=== PATIENT | female | born 1955 | race Caucasian/White ===

== ENCOUNTER 2022-07-18 11:03 | Observation (INO) | payer MEDICARE ==
[2022-07-18 11:50] LABS: Glucose,Whole Blood 95 mg/dL (70-110)
[2022-07-18 12:11] LABS: Basophils % (A) 1 %; Eosinophils # (A) 0.1 k/uL (0-0.7); Eosinophils % (A) 2 %; HCT 47.4 % (34.0-46.0); HGB 15.4 gm/dL (11.4-16.0); Lymphocytes # (A) 1.4 k/uL (1.0-4.8); Lymphocytes % (A) 27 %; MCH 31.3 pg (25.0-35.0); MCHC 32.4 g/dL (31.0-37.0); MCV 96.6 fL (80.0-100.0); Mean Platelet Volume 8.5; Monocytes # (A) 0.4 k/uL (0-1.0); Monocytes % (A) 8 %; Neutrophils # (A) 3.2 k/uL (1.3-7.7); Neutrophils % (A) 61 %; Platelet Count 243 k/uL (150-450); RBC 4.91 m/uL (3.80-5.40); WBC 5.2 k/uL (3.8-10.6)
--- NOTE | 2022-07-18 12:12 | XR ---
EXAMINATION TYPE: XR chest 2V DATE OF EXAM: 07/18/2022 COMPARISON: NONE TECHNIQUE: PA and lateral views submitted. HISTORY: TIA symptoms FINDINGS: The lungs are clear and there is no pneumothorax, pleural effusion, or focal pneumonia. Heart size normal and no overt failure. Osseous structures demonstrate hypertrophic and degenerative changes of the spine. Hyperinflation suggests COPD. IMPRESSION: 1. No acute process.
--- NOTE | 2022-07-18 12:23 | CT ---
EXAMINATION TYPE: CT brain wo con DATE OF EXAM: 07/18/2022 COMPARISON: None HISTORY: Neuro deficit, acute, stroke, suspected CT DLP: 1096.7 mGycm Automated exposure control for dose reduction was used. FINDINGS: Mild to moderate generalized degenerative change of low attenuation in the white matter. No mass effe ct or midline shift. On axial image 7 there is an area of hyperdensity near the foramen of magnum whi ch is felt to be most likely artifactual but should be reevaluated at time of CTA. There does appear to be evidence of a Chiari malformation with cerebellar tonsillar ectopia and there also is a evidenc e of a partially empty sella which can be an indirect indicator of increased intracranial pressure. O rbits are symmetric. Graft orbits are symmetric. There are changes of chronic sinusitis. IMPRESSION: 1. Degenerative and nonspecific white matter changes most typical of remote ischemia. There is eviden ce of tonsillar ectopia and Chiari malformation. 2. No definite acute hemorrhage. Area of hyperdensity seen surrounding the cervical medullary junctio n axial image 7 is felt to be most likely artifactual but should be reevaluated at the time of the CT A. 3. There is a 8 mm nodule posterior lateral to the left of the spinal cord on axial image 4. This nadia uld also be evaluated at the time of CTA (which has already been ordered) to determine if this is a b lood vessel or intradural spinal canal lesion.
[2022-07-18 12:25] LABS: ALT 29 U/L (4-34); AST 33 U/L (14-36); African American GFR (CKD) >90 (>60 ml/min/1.73 sqM); Albumin 4.7 g/dL (3.5-5.0); Alkaline Phosphatase 78 U/L (38-126); Anion Gap 9 mmol/L; Blood Urea Nitrogen 12 mg/dL (7-17); Calcium 9.5 mg/dL (8.4-10.2); Carbon Dioxide 30 mmol/L (22-30); Chloride 103 mmol/L (98-107); Glucose 104 mg/dL (74-99); Non-African American GFR(CKD) >90 (>60 ml/min/1.73 sqM); Potassium 4.1 mmol/L (3.5-5.1); Sodium 142 mmol/L (137-145)
[2022-07-18 12:26] LABS: INR 0.9 (<1.2); Partial Thromboplastin Time 25.5 sec (22.0-30.0); Prothrombin Time 9.9 sec (9.0-12.0)
--- NOTE | 2022-07-18 12:51 | CT ---
EXAMINATION TYPE: CT angio head neck DATE OF EXAM: 07/18/2022 COMPARISON: Noncontrast CT head same day HISTORY: 66-year-old female Neuro deficit, acute, stroke suspected TECHNIQUE: Contiguous axial scanning of the head and neck performed with IV Contrast, patient injecte d with 65 ml mL of Isovue 370. Coronal/sagittal reconstructions performed. 3-D reconstructions genera justen on a dedicated independent workstation. CT DLP: 511.8 mGycm Automated exposure control for dose reduction was used. FINDINGS: Neck: Mildly ectatic upper descending thoracic aorta at 3.2 cm. Conventional branching anatomy. Dominant left vertebral artery with possible moderate narrowing at its origin. Otherwise, both verteb ral arteries are patent throughout their course. Retropharyngeal course right common carotid artery. Both right common and internal carotid arteries are widely patent. NASCET criteria was utilized. Left common carotid artery is patent. Retropharyngeal course proximal and mid left internal carotid artery. Internal carotid artery widely patent. Head: Slightly more dominant left vertebral artery. The V4 segment right vertebral artery after the PICA ta keoff becomes even more hypoplastic. We note some dorsal soft tissue at the lower craniocervical junc tion which appears to displace opacified vessels anteriorly. Extra medullary intradural mass is possi ble. Significant cerebellar tonsillar ectopia is favored. Diffusely small caliber to the basilar artery which is otherwise patent. Hypoplastic bilateral P1 seg ments posterior cerebral arteries with large bilateral posterior communicating arteries compatible wi th persistent origins. Otherwise, posterior circulation is patent. Both internal carotid arteries as well as the remainder of the anterior circulation is patent. No aneurysmal change is seen. Dural venous sinuses are patent. IMPRESSION: NECK: 1. DOMINANT LEFT VERTEBRAL ARTERY. THERE MAY BE A MODERATE STENOSIS AT ITS ORIGIN. OTHERWISE, BOTH VE RTEBRAL ARTERIES OPACIFY THROUGHOUT THEIR COURSE. 2. WIDELY PATENT COMMON AND INTERNAL CAROTID ARTERIES OF THE NECK. HEAD: 3. EXTRAMEDULLARY, INTRADURAL SOFT TISSUE ALONG THE DORSAL ASPECT OF THE LOWER CRANIOCERVICAL JUNCTIO N. RECOMMEND MRI TO EXCLUDE A MASS WITHIN THE SPINAL CANAL HERE. WE FAVOR AN UNDERLYING CHIARI I MALF ORMATION. CORRELATE FOR ANY CHRONIC SYMPTOMS. 4. UNIFORMLY SMALL CALIBER TO THE VERTEBROBASILAR SYSTEM. CORRELATE FOR ANY CHRONIC VERTEBROBASILAR I NSUFFICIENCY SYMPTOMS. 5. PERSISTENT ORIGIN BILATERAL POSTERIOR CEREBRAL ARTERIES. 6. NO LARGE VESSEL INTRACRANIAL ARTERIAL OCCLUSION, SIGNIFICANT STENOSIS, OR ANEURYSMAL CHANGE IS SEE N.
[2022-07-18] MEDS ORDERED: hydrALAZINE HCL 20 MG/ML 1 ML VIAL IVP STA (13:43)
--- NOTE | 2022-07-18 14:01 | ED ---
General Adult HPI - General Chief complaint: Weakness Stated complaint: poss TIA Time Seen by Provider: 07/18/22 11:10 Source: patient, EMS, RN notes reviewed, old records reviewed Mode of arrival: EMS Limitations: no limitations - History of Present Illness Initial comments: This is a 66-year-old female presents emergency department stating that she was experiencing some numbness to the right side of her face and right arm and then it went to her right leg. Patient states then she went to stand up and she felt like she might start to fall over. Patient states the symptoms lasted pretty significantly for about 15 minutes and currently they are completely gone. Patient states any prior history of similar symptoms. Patient denies any recent fever chills per patient denies any headache patient denies any chest pain palpitations or difficulty breathing. Patient denies any abdominal pain. Patient states currently she feels back to her baseline. - Related Data Home Medications Medication Instructions Recorded Confirmed No Known Home Medications 07/18/22 07/18/22 Allergies Allergy/AdvReac Type Severity Reaction Status Date / Time No Known Allergies Allergy Verified 07/18/22 12:51 Review of Systems ROS Statement: Those systems with pertinent positive or pertinent negative responses have been documented in the HPI. ROS Other: All systems not noted in ROS Statement are negative. Past Medical History Past Medical History: Hypertension History of Any Multi-Drug Resistant Organisms: None Reported Past Surgical History: No Surgical Hx Reported Smoking Status: Never smoker Past Alcohol Use History: None Reported Past Drug Use History: None Reported General Exam - General Exam Comments Initial Comments: GENERAL: Patient is well-developed and well-nourished. Patient is nontoxic and well- hydrated and is in acute distress. ENT: Neck is soft and supple. No significant lymphadenopathy is noted. Oropharynx is clear. Moist mucous membranes. Neck has full range of motion without eliciting any pain. EYES: The sclera were anicteric and conjunctiva were pink and moist. Extraocular movements were intact and pupils were equal round and reactive to light. Eyelids were unremarkable. PULMONARY: Unlabored respirations. Good breath sounds bilaterally. No audible rales rhonchi or wheezing was noted. CARDIOVASCULAR: There is a regular rate and rhythm without any murmurs gallops or rubs. ABDOMEN: Soft and nontender with normal bowel sounds. SKIN: Skin is clear with no lesions or rashes and otherwise unremarkable. NEUROLOGIC: Patient is alert and oriented x3. Cranial nerves II through XII are grossly intact. Motor and sensory are also intact. Normal speech, volume and content. Symmetrical smile. Cerebellar testing finger to nose was normal bilaterally MUSCULOSKELETAL: Normal extremities with adequate strength and full range of motion. LYMPHATICS: No significant lymphadenopathy is noted PSYCHIATRIC: Normal psychiatric evaluation. Limitations: no limitations Course Vital Signs 07/18/22 07/18/22 11:05 12:23 Temperature 97.8 F Pulse Rate 68 60 Respiratory 20 18 Rate Blood Pressure 225/109 196/101 O2 Sat by Pulse 97 96 Oximetry Medical Decision Making - Medical Decision Making EKG was interpreted by myself shows a sinus rhythm at 66 bpm AK interval 172 QRS is 104 QT interval is 419 QTC is 432. Patient's EKG shows no ST segment elevation Was pt. sent in by a medical professional or institution (, PA, STATION CHIEF, urgent care, hospital, or alf...) When possible be specific @ -No Did you speak to anyone other than the patient for history (EMS, parent, family, police, friend...)? What history was obtained from this source @ -No Did you review nursing and triage notes (agree or disagree)? Why? @ -I reviewed and agree with nursing and triage notes Were old charts reviewed (outside hosp., previous admission, EMS record, old EKG, old radiological studies, urgent care reports/EKG's, alf records)? Report findings @ -No old charts were reviewed Differential Diagnosis (chest pain, altered mental status, abdominal pain women, abdominal pain men, vaginal bleeding, weakness, fever, dyspnea, syncope, headache, dizziness, GI bleed, back pain, seizure, CVA, palpatations, mental health, musculoskeletal)? @ -Differential CVA Ischemic stroke, hemorrhagic stroke, brain tumor, atypical migraine, Wernicke's encephalopathy, seizure, multiple sclerosis, meningitis, encephalitis, hypoglycemia, Guillain-Mayes, electrolytes disturbance, myasthenia gravis.... This is not meant to be an all-inclusive list EKG interpreted by me (3pts min.). @ -As above X-rays interpreted by me (1pt min.). @ -Chest x-ray was interpreted by myself shows no acute abnormality. CT interpreted by me (1pt min.). @ -CT of the brain was interpreted by myself shows no acute abnormality. CT of the head and neck shows a possible Chiari malformation U/S interpreted by me (1pt. min.). @ -None done What testing was considered but not performed or refused? (CT, X-rays, U/S, labs)? Why? @ -None What meds were considered but not given or refused? Why? @ -None Did you discuss the management of the patient with other professionals (pro fessionals i.e. , PA, STATION CHIEF, lab, RT, psych nurse, high school social science teacher, revenue analyst, teacher, escrow officer, pillowcase sewer)? Give summary @ -[facility] the patient Was smoking cessation discussed for >3mins.? @ -No Was critical care preformed (if so, how long)? @ -No Were there social determinants of health that impacted care today? How? (Homelessness, low income, unemployed, alcoholism, drug addiction, transportati on, low edu. Level, literacy, decrease access to med. care, penitentiary, rehab)? @ -No Was there de-escalation of care discussed even if they declined (Discuss DNR or withdrawal of care, Hospice)? DNR status @ -No What co-morbidities impacted this encounter? (DM, HTN, Smoking, COPD, CAD, Cancer, CVA, ARF, Chemo, Hep., AIDS, mental health diagnosis, sleep apnea, morbid obesity)? @ -None Was patient admitted / discharged? Hospital course, mention meds given and route, prescriptions, significant lab abnormalities, going to OR and other pertinent info. @ -Patient had symptoms consistent with a TIA. I spoke with the hospice agreed to admit the patient and consult neurology. Patient's computed tomography scan also showed possible Chiari malformations the patient will need an MRI to follow up on whether or not she has a malformation Undiagnosed new problem with uncertain prognosis? @ -No Drug Therapy requiring intensive monitoring for toxicity (Heparin, Nitro, Insulin, Cardizem)? @ -No Were any procedures done? @ -No Diagnosis/symptom? @ -TIA Acute, or Chronic, or Acute on Chronic? @ -Acute Uncomplicated (without systemic symptoms) or Complicated (systemic symptoms)? @ -Complicated Side effects of treatment? @ -No Exacerbation, Progression, or Severe Exacerbation? @ -No Poses a threat to life or bodily function? How? (Chest pain, [place], [place], pneumonia, PE, COPD, DKA, ARF, appy, cholecystitis, CVA, Diverticulitis, Homicidal, Suicidal, threat to staff... and all critical care pts) @ -Yes could lead to progression of the stroke to serious deficit - Lab Data Result diagrams: 07/18/22 11:50 07/18/22 11:50 Lab Results 07/18/22 07/18/22 07/18/22 Range/Units 11:49 11:50 11:50 WBC 5.2 (3.8-10.6) k/uL RBC 4.91 (3.80-5.40) m/uL Hgb 15.4 (11.4-16.0) gm/dL Hct 47.4 H (34.0-46.0) % MCV 96.6 (80.0-100.0) fL MCH 31.3 (25.0-35.0) pg MCHC 32.4 (31.0-37.0) g/dL RDW 13.0 (11.5-15.5) % Plt Count 243 (150-450) k/uL MPV 8.5 Neutrophils % 61 % Lymphocytes % 27 % Monocytes % 8 % Eosinophils % 2 % Basophils % 1 % Neutrophils # 3.2 (1.3-7.7) k/uL Lymphocytes # 1.4 (1.0-4.8) k/uL Monocytes # 0.4 (0-1.0) k/uL Eosinophils # 0.1 (0-0.7) k/uL Basophils # 0.0 (0-0.2) k/uL PT 9.9 (9.0-12.0) sec INR 0.9 (<1.2) APTT 25.5 (22.0-30.0) sec Sodium (137-145) mmol/L Potassium (3.5-5.1) mmol/L Chloride (98-107) mmol/L Carbon Dioxide (22-30) mmol/L Anion Gap mmol/L BUN (7-17) mg/dL Creatinine (0.52-1.04) mg/dL Est GFR (CKD-EPI)AfAm (>60 ml/min/1.73 sqM) Est GFR (CKD-EPI)NonAf (>60 ml/min/1.73 sqM) Glucose (74-99) mg/dL POC Glucose (mg/dL) 95 (70-110) mg/dL POC Glu Rn [place] Calcium (8.4-10.2) mg/dL Total Bilirubin (0.2-1.3) mg/dL AST (14-36) U/L ALT (4-34) U/L Alkaline Phosphatase (38-126) U/L Troponin I (0.000-0.034) ng/mL Total Protein (6.3-8.2) g/dL Albumin (3.5-5.0) g/dL 07/18/22 07/18/22 Range/Units 11:50 11:50 WBC (3.8-10.6) k/uL RBC (3.80-5.40) m/uL Hgb (11.4-16.0) gm/dL Hct (34.0-46.0) % MCV (80.0-100.0) fL MCH (25.0-35.0) pg MCHC (31.0-37.0) g/dL RDW (11.5-15.5) % Plt Count (150-450) k/uL MPV Neutrophils % % Lymphocytes % % Monocytes % % Eosinophils % % Basophils % % Neutrophils # (1.3-7.7) k/uL Lymphocytes # (1.0-4.8) k/uL Monocytes # (0-1.0) k/uL Eosinophils # (0-0.7) k/uL Basophils # (0-0.2) k/uL PT (9.0-12.0) sec INR (<1.2) APTT (22.0-30.0) sec Sodium 142 (137-145) mmol/L Potassium 4.1 (3.5-5.1) mmol/L Chloride 103 (98-107) mmol/L Carbon Dioxide 30 (22-30) mmol/L Anion Gap 9 mmol/L BUN 12 (7-17) mg/dL Creatinine 0.58 (0.52-1.04) mg/dL Est GFR (CKD-EPI)AfAm >90 (>60 ml/min/1.73 sqM) Est GFR (CKD-EPI)NonAf >90 (>60 ml/min/1.73 sqM) Glucose 104 H (74-99) mg/dL POC Glucose (mg/dL) (70-110) mg/dL POC Glu Rn [place] Calcium 9.5 (8.4-10.2) mg/dL Total Bilirubin 1.0 (0.2-1.3) mg/dL AST 33 (14-36) U/L ALT 29 (4-34) U/L Alkaline Phosphatase 78 (38-126) U/L Troponin I <0.012 (0.000-0.034) ng/mL Total Protein 8.0 (6.3-8.2) g/dL Albumin 4.7 (3.5-5.0) g/dL Disposition Clinical Impression: TIA (transient ischemic attack), Chiari malformation Disposition: ADMITTED IP TO THIS HOSP Referrals: Nonstaff,Physician [Primary Care Provider] - 1-2 days Time of Disposition: 14:01
[2022-07-18] MEDS ORDERED: ASPIRIN 325 MG TAB PO STA (14:02)
--- NOTE | 2022-07-18 16:28 | P.CNNES ---
History of Present Illness Consult date: 07/18/22 Requesting physician: Kamlesh Umana Reason for Consult: TIA History of Present Illness: This is a 66-year-old woman with chronic history of hypertension and patient is on any medication who presented emergency department because of numbness over the right side of the face as well as the upper and lower extremity. Her children are at bedside who help with some of the history. It seems that the patient's symptoms started around 9:49 AM today with numbness around the right side of the face then eventually went to the right arm and right leg. Patient had questionable right lower facial droop. It seems the patient went to stand up and sensational fall. Her episode ended around 10:07 AM today. Patient denies history of stroke or TIA in the past. Patient denies being on antiplatelet or anticoagulation. She states that she's not any medication. She states that she has chronic history of hypertension and her systolic blood pressure runs between 140s to 150s. She has tried taking medication in April 2022 but could not tolerate the medication was stopped. She denies any history of diabetes or any other medical issues. Some other workup during this hospital visits consisted of: Initial blood pressure is 225/110 9 repeated is 196/101. Chemistry panel is unremarkable. CT of the head is reported as degenerative and nonspecific white matter changes most typical of remote ischemia. 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 No definite acute hemorrhage. Area of hyperdensity seen surrounding the cervical medullary junction axillary image 7 is felt to be most likely artifactual but should be reevaluated at the time of the CTA. There is 8 mm nodule posture lateral to the left or spinal cord on axial image 4. Should be evaluated at the time of CTA which already abdomen order to determine if this is a blood vessel or intradural spinal canal lesion. I personally reviewed the CT of the head and there is no acute or subacute ischemia there is no bleed. I feel patient does not have a mass seen on the cervical medullary junction but MRI is more specific to rule out. CT angiography of the neck is reported as dominant left vertebral artery. There may be a moderate stenosis at the origin. Otherwise both vertebral artery opacity through their course. Widely patent common internal carotid artery of the neck. CT angiography of the head is reported as extramedullary, intramedullary soft tissue along the dorsal aspect of the lower cranial cervical junction area and recommended to exclude a mass within the spinal canal here. We favor an underlying chiari malformation. Correlate for any chronic symptoms. Uniformly small caliber to the vertebrobasilar system. Correlate for any chronic vertebrobasilar insufficiency symptoms. Persistent origin bilateral posterior cerebral arteries. No large vessel intracranial arterial occlusion, significant stenosis or aneurysm changes seen. Patient's symptoms has resolved on presentation. No IV TPA since symptoms has resolved and the risk of use of a TPA outweigh the benefit Review of Systems Review of system: The 12 point system was reviewed and apparent positive and negative per HPI. Past Medical History Past Medical History: Hypertension History of Any Multi-Drug Resistant Organisms: None Reported Past Surgical History: No Surgical Hx Reported Smoking Status: Never smoker Past Alcohol Use History: None Reported Past Drug Use History: None Reported Medications and Allergies Home Medications Medication Instructions Recorded Confirmed Type No Known Home Medications 07/18/22 07/18/22 History Allergies Allergy/AdvReac Type Severity Reaction Status Date / Time No Known Allergies Allergy Verified 07/18/22 12:51 Physical Examination - Vital Signs Vital Signs: Vital Signs Temp Pulse Resp BP Pulse Ox 07/18/22 15:00 73 13 164/94 98 07/18/22 14:00 78 9 L 181/96 96 07/18/22 13:00 69 11 L 190/100 96 07/18/22 12:23 60 18 196/101 96 07/18/22 11:05 97.8 F 68 20 225/109 97 Intake and Output 07/18/22 07/18/22 07/18/22 06:59 14:59 22:59 Other: Weight 81.647 kg GENERAL: The patient is lying in bed and is not in acute distress. CHEST: The heart rate is regular rate rhythm. No murmurs to auscultation. LUNG: Clear to auscultation bilaterally no wheezing noted throughout. Not labored breathing. ABDOMEN/GI: Bowel sounds present in all 4 quadrants. No tenderness to palpation throughout. NEUROLOGICAL: Higher mental function: The patient is awake, alert, oriented to self, place and time. Patient is following commands. No aphasia and no neglect. Cranial nerves: The pupils are round, equal and reactive to light and a ccommodation. Visual hendrix are full to confrontation throughout. Extraocular movement is intact no nystagmus is noted. Facial sensation is normal to touch throughout. The facial strength is normal throughout. Hearing is normal bilaterally to hand rub. Tongue is midline and moved [id number] without any difficulty. No dysarthria is noted. Shoulder shrug is normal bilaterally. Motor: The strength is 5 over 5 throughout. Normal tone and bulk. Cerebellum: Normal finger to nose heel to morrow bilaterally. Sensation: Sensation is normal to touch throughout. Reflexes (right/left): 2+ throughout. Plantars are downgoing bilaterally. Results - Laboratory Findings CBC and BMP: 07/18/22 11:50 07/18/22 11:50 Abnormal Lab Findings: Abnormal Labs 07/18/22 07/18/22 11:50 11:50 Hct 47.4 H Glucose 104 H Assessment and Plan Assessment: * Transient ischemic attack (presented with numbness of the right face then involved right upper and lower and sensation to fall with ?right facial). Likely due chronic hypertension and patient is not on medicaiton. * Hypertensive emergency (presented with blood pressure of 225/109) * Extramedullary, intramedullary soft tissue along the dorsal aspect of the lower cranial cervical junction seen on CT/CTA: Rule out mass vs underlying chiari malformation. * Ongoing chronic hypertension and not on mediation. * Family history of TIA Plan: * Extramedullary, intramedullary soft tissue along the dorsal aspect of the lower cranial cervical junction seen on CT/CTA: Rule out mass vs underlying chiari malformation.: Therefore, ordered MRI Brain/C-spine w/ and w/o. * Patient was started on aspirin 325mg daily in the ED (was not on any antiplatelets at home). I will hold the use of stool antiplatelets until we get the MRI to rule out any mass to avoid any increased risk of a bleeding. I started the patient on low dose Lipitor 10 mg daily at bedtime for secondary stroke prophylaxis. I startedher on low dose statin since the patient was hesitant on starting because her had side effects to Lipitor. * I ordered 2-D echo and lipid panel is ordered. * Every 4 neuro checks * Placed on cardiac monitoring * PT OT and [employer] are consulted * We'll defer the rest of the medical management to primary team * For DVT prophylaxis start the patient on subcu heparin 5000 units every 8 hours. The plan was discussed with the patient and her children who are bedside. Thank you for the consultation Time with Patient: Greater than 30
[2022-07-18] MEDS ORDERED: ATORVASTATIN 10 MG TAB PO SCH (21:00)
[2022-07-18] MEDS: HEPARIN SODIUM,PORCINE/PF 5,000 UNIT/0.5 ML SYRINGE SQ SCH (21:04)
--- NOTE | 2022-07-19 01:42 | P.HPIM ---
History of Present Illness H&P Date: 07/18/22 Chief Complaint: Right-sided numbness Patient is a 66-year-old female known history of hypertension currently not on any medications presents to ER with complaints of numbness of the right upper and lower extremity and right side of the face. Denies any slurred speech or vi sual disturbance. No headache or dizziness. Symptoms lasted about 10 minutes and resolved by the time EMS arrived. Otherwise patient denied any recent illnesses. No prior history of stroke or TIA. On admission blood pressure is elevated with SBP in 200s. Blood pressure 225 or 109 and pulse 68 respiration 20 and pulse ox 97% on room air. Patient is somewhat poor historian and most of the history was taken from medical records and her family at bedside. Chest x-ray showed no acute process. CT head showed degenerative and nonspecific white matter changes most typical of remote ischemia. 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 No definite acute hemorrhage. Area of hypodensity seen surrounding the cervical medullary junction is felt to be most likely artifactual but should be reevaluated at the time of CTA. There is 8 mm nodule posterior lateral to the left of the spinal cord there is also evaluated at the time of CTA. CT angiogram showed dominant left vertebral artery. There may be a moderate stenosis at its origin. Otherwise both vertebral arteries opacified throughout the course. Widely patent common and blinker of the arteries of the neck. CTA head showed extramedullary intradural soft tissue along the dorsal aspect of the lower craniocervical junction. Recommend MRI to exclude a mass within the spinal canal here. Possible underlying Chiari malformation. Persistent origin bilateral posterior cerebral arteries. No large vessel intracranial arterial occlusion., Significant stenosis, or aneurysmal change is seen. Laboratory data showed WBC 5.2 hemoglobin 15.4 and platelets 243 sodium 142 potassium 4.1 chloride 103 bicarb is 30 BUN 12 and creatinine 0.58 and liver enzymes are not elevated troponin x3 negative CPK 130. Review of Systems Constitutional: Patient denies any fever or chills . no Generalized weakness. Abdomen: Patient denied any nausea or vomiting or abd. pain Cardiovascular: Patient denies any chest pain or short of breath no palpitations. Respiratory: patient denied any cough . no sputum production. No shortness of breath Neurologic: Patient denied any numbness or tingling headache. Right-sided numbness. Denies any focal weakness. Musculoskeletal: Patient denies any complaints of joint swelling or deformity. Skin: Negative Psychiatric: Negative Endocrine: No heat or cold intolerance. No recent weight gain. Genitourinary: No dysuria or hematuria. All other 14 point ROS negative except the above Past Medical History Past Medical History: Hypertension History of Any Multi-Drug Resistant Organisms: None Reported Past Surgical History: No Surgical Hx Reported Smoking Status: Never smoker Past Alcohol Use History: None Reported Past Drug Use History: None Reported Medications and Allergies Home Medications Medication Instructions Recorded Confirmed Type No Known Home Medications 07/18/22 07/18/22 History Allergies Allergy/AdvReac Type Severity Reaction Status Date / Time No Known Allergies Allergy Verified 07/18/22 12:51 Physical Exam Vitals: Vital Signs Temp Pulse Resp BP Pulse Ox 07/18/22 15:00 73 13 164/94 98 07/18/22 14:00 78 9 L 181/96 96 07/18/22 13:00 69 11 L 190/100 96 07/18/22 12:23 60 18 196/101 96 07/18/22 11:05 97.8 F 68 20 225/109 97 Intake and Output 07/18/22 07/18/22 07/18/22 06:59 14:59 22:59 Other: Weight 81.647 kg PHYSICAL EXAMINATION: Patient is lying in the bed comfortably, no acute distress, awake alert and oriented.. HEENT: Normocephalic. Neck is supple. Pupils reactive. Nostrils clear. Oral cavity is moist. Neck reveals no JVD, carotid bruits, or thyromegaly. CHEST EXAMINATION: Trachea is central. Symmetrical expansion. Lung hendrix clear to auscultation and percussion. CARDIAC: Normal S1, S2 with no gallops. No murmurs ABDOMEN: Soft. Bowel sounds present. Nontender. No organomegaly. No abdominal bruits. Extremities: reveal no edema. No clubbing or cyanosis Neurologically awake, alert, oriented x2-3 with well-coordinated movements. No focal deficits noted Skin: No rash or skin lesions. Psychiatric: Coperative. Nonsuicidal, Musculoskeletal: No joint swelling or deformity. Normal range of motion. Results CBC & Chem 7: 07/18/22 11:50 07/18/22 11:50 Labs: Abnormal Lab Results - Last 24 Hours (Table) 07/18/22 07/18/22 Range/Units 11:50 11:50 Hct 47.4 H (34.0-46.0) % Glucose 104 H (74-99) mg/dL Thrombosis Risk Factor Assmnt - DVT/VTE Prophylaxis DVT/VTE Prophylaxis: Pharmacologic Prophylaxis ordered Assessment and Plan Assessment: Right-sided upper and lower extremity and facial numbness. Likely due to TIA resolved now. Hypertensive emergency with SBP greater than 220 on admission History of hypertension currently not taking any medications. Possible Chiari malformation as per CTA and CT head. DVT prophylaxis with heparin subcu Plan: Patient will be continued on telemetry monitoring. Continue with neurochecks. Stroke work-up including CT head and CTA head and neck was done. MRI of the brain and C-spine was ordered for further evaluation of possible Chiari malformation. Patient was started on aspirin and statins. 2D echocardiogram was ordered. Follow-up TSH, B12 and folate levels. Continue to monitor blood pressure and will initiate Norvasc/lisinopril in the next 24 hours. Follow-up closely. Neurology is on board. Time with Patient: Greater than 30
[2022-07-19 08:15] VITALS: RESP 16
[2022-07-19] MEDS: HEPARIN SODIUM,PORCINE/PF 5,000 UNIT/0.5 ML SYRINGE SQ SCH ×2 (08:52→18:02)
[2022-07-19] MEDS ORDERED: ASPIRIN 325 MG TAB PO SCH (09:00)
[2022-07-19 10:01] LABS: African American GFR (CKD) 105.4 (60.0-200.0); BUN/Creat Ratio 17.29 Ratio (12.00-20.00); Blood Urea Nitrogen 12.1 mg/dL (9.0-27.0); Calcium 9.6 mg/dL (8.7-10.3); Carbon Dioxide 27.9 mmol/L (20.0-27.5); Chloride 104 mmol/L (96-109); Glucose 89 mg/dL (70-110); Non-African American GFR(CKD) 90.9 (60.0-200.0); Potassium 3.6 mmol/L (3.5-5.5); Sodium 141 mmol/L (135-145)
[2022-07-19 10:02] LABS: Chol/HDL Ratio 4.19 Ratio; LDL Cholesterol,Calculated 130.6 mg/dL (0.0-131.0)
--- NOTE | 2022-07-19 12:01 | P.PN ---
Subjective Progress Note Date: 07/19/22 Patient seen at bedside and that continues to feel as she is at baseline. Denies of any neurological issues. Denies of any headache. Objective - Vital Signs Vital signs: Vital Signs Temp 97.7 F 07/19/22 07:00 Pulse 76 07/19/22 07:00 Resp 16 07/19/22 07:00 BP 159/78 07/19/22 07:00 Pulse Ox 97 07/19/22 08:01 FiO2 21 07/19/22 08:01 Intake & Output 07/18/22 07/19/22 07/19/22 18:59 06:59 18:59 Weight 81.647 kg Other: # Voids 2 - Exam GENERAL: The patient is lying in bed and is not in acute distress. NEUROLOGICAL: Higher mental function: The patient is awake, alert, oriented to self, place and time. Patient is following commands. No aphasia and no neglect. Cranial nerves: The pupils are round, equal and reactive to light and a ccommodation. Visual hendrix are full to confrontation throughout. Extraocular movement is intact no nystagmus is noted. Facial sensation is normal to touch throughout. The facial strength is normal throughout. Hearing is normal bilaterally to hand rub. Tongue is midline and moved [id number] without any difficulty. No dysarthria is noted. Shoulder shrug is normal bilaterally. Motor: Gait is normal. The strength is 5 over 5 throughout. Normal tone and bulk. Cerebellum: Normal finger to nose heel to morrow bilaterally. Sensation: Sensation is normal to touch throughout. Reflexes (right/left): 2+ throughout. Plantars are downgoing bilaterally. Some other workup during this hospital visits consisted of: Lipid panel: Triglyceride of 101, cholesterol 190, LDLs 1:30, HDL is 47. Vitamin B12 is 345 TSH is 1.510 Chemistry panel is unremarkable. CT of the head is reported as degenerative and nonspecific white matter changes most typical of remote ischemia. 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 No definite acute hemorrhage. Area of hyperdensity seen surrounding the cervical medullary junction axillary image 7 is felt to be most likely artifactual but should be reevaluated at the time of the CTA. There is 8 mm nodule posture lateral to the left or spinal cord on axial image 4. Should be evaluated at the time of CTA which already abdomen order to determine if this is a blood vessel or intradural spinal canal lesion. I personally reviewed the CT of the head and there is no acute or subacute ischemia there is no bleed. I feel patient does not have a mass seen on the cervical medullary junction but MRI is more specific to rule out. CT angiography of the neck is reported as dominant left vertebral artery. There may be a moderate stenosis at the origin. Otherwise both vertebral artery opacity through their course. Widely patent common internal carotid artery of the neck. CT angiography of the head is reported as extramedullary, intramedullary soft tissue along the dorsal aspect of the lower cranial cervical junction area and recommended to exclude a mass within the spinal canal here. We favor an underlying chiari malformation. Correlate for any chronic symptoms. Uniformly small caliber to the vertebrobasilar system. Correlate for any chronic vertebrobasilar insufficiency symptoms. Persistent origin bilateral posterior cerebral arteries. No large vessel intracranial arterial occlusion, significant stenosis or aneurysm changes seen. - Labs CBC & Chem 7: 07/18/22 11:50 07/19/22 06:27 Labs: Abnormal Lab Results - Last 24 Hours (Table) 07/18/22 07/18/22 07/19/22 Range/Units 11:50 11:50 06:27 Hct 47.4 H (34.0-46.0) % Carbon Dioxide 27.9 H (20.0-27.5) mmol/L Anion Gap 9.10 L (10.00-18.00) mmol/L Glucose 104 H (74-99) mg/dL Assessment and Plan Assessment: * Transient ischemic attack (presented with numbness of the right face then involved right upper and lower and sensation to fall with ?right facial). Likely due chronic hypertension and patient is not on medication. * Hypertensive emergency (presented with blood pressure of 225/109) * Extramedullary, intramedullary soft tissue along the dorsal aspect of the lower cranial cervical junction seen on CT/CTA: Rule out mass vs underlying chiari malformation. * Ongoing chronic hypertension and not on mediation. * Family history of TIA Plan: * Extramedullary, intramedullary soft tissue along the dorsal aspect of the lower cranial cervical junction seen on CT/CTA: Rule out mass vs underlying chiari malformation.: Therefore, ordered MRI Brain/C-spine w/ and w/o. * Patient was started on aspirin 325mg daily in the ED (was not on any antiplatelets at home). I will hold the use of stool antiplatelets until we get the MRI to rule out any mass to avoid any increased risk of a bleeding. I started the patient on low dose Lipitor 10 mg daily at bedtime for secondary stroke prophylaxis. I started her on low dose statin since the patient was hesitant on starting. * Pending 2-D echo * Every 4 neuro checks * Placed on cardiac monitoring * PT OT and ASSISTANT CUSTOMER SERVICE MANAGER are consulted * We'll defer the rest of the medical management to primary team * For DVT prophylaxisOn subcu heparin 5000 units every 8 hours. * Upon discharge and recommend the patient follow up with a neurologist as an outpatient within 1-2 weeks. The plan was discussed with the patient and her nurse. Time with Patient: Less than 30
--- NOTE | 2022-07-19 15:45 | MR ---
EXAMINATION TYPE: MR brain/cspine wo/w DATE OF EXAM: 07/19/2022 COMPARISON: None HISTORY: Neuro deficit, abnormal brain CT CONTRAST: Standard multiplanar, multisequence MRI departmental protocol images were obtained without contrast a nd with 8.5 mL intravenous Gadavist gadolinium contrast. There is mild cerebral cortical atrophy. There is no mass effect or midline shift. No sign of intracr anial hemorrhage. Diffusion images show no evidence of an acute infarct. Brainstem is intact. There are on the T2 and FLAIR images multiple foci of increased signal at the gr ay-white matter junction both cerebral hemispheres. Total number is more than 20 and these measure up to 5 mm. Solid turcica is normal. Corpus callosum appears intact. The cervical vertebra have normal alignment. There is some mild disc space narrowing at C4-5 and C5-6 and spurring of the endplates. Cervical spinal cord shows normal signal pattern. No edema. No cervic al spinal stenosis. No evidence of focal bone destruction. Contrast images show no pathologic intracranial enhancement. There is normal enhancement of the venou s sinuses. No pathologic enhancement in the cervical spine. IMPRESSION: There are some ordinary spondylotic changes in the lower cervical spine. No evidence of any significa nt cervical spinal stenosis or disc herniation. Minimal posterior disc bulging at C5-6 and C4-5. Numerous small white matter high signal foci are somewhat peripheral in the cerebral hemispheres and suggestive of microvascular ischemia. No acute infarct.
[2022-07-19 16:08] VITALS: BP 162/90; PULSE 85; TEMP 98.2
--- NOTE | 2022-07-22 14:12 | CA ---
Transthoracic Echo Report Name: Isadora Orlando Age: 66 Gender: F : 1955 Exam Date: 07/18/2022 16:22 Exam Location: [facility] Ht (in): 64 Wt (lb): 180 Ordering Physician: John Shannon MD Attending/Referring Phys: Radiographer Geo Malloy RDCS Procedure CPT: Indications: stroke Cardiac Hx: Technical Quality: Fair Contrast 1: Total Dose (mL): Contrast 2: Total Dose (mL): MEASUREMENTS (Male / Female) Normal Values 2D ECHO LV Diastolic Diameter PLAX 3.1 cm 4.2 - 5.9 / 3.9 - 5.3 cm LV Systolic Diameter PLAX 2.2 cm IVS Diastolic Thickness 1.8 cm 0.6 - 1.0 / 0.6 - 0.9 cm LVPW Diastolic Thickness 1.6 cm 0.6 - 1.0 / 0.6 - 0.9 cm LV Relative Wall Thickness 1.1 LA Systolic Diameter LX 3.2 cm 3.0 - 4.0 / 2.7 - 3.8 cm LV Diastolic Volume MOD BP 92.5 cm??? 67 - 155 / 56 - 104 cm??? LV Systolic Volume MOD BP 41.3 cm??? 22 - 58 / 19 - 49 cm??? LV Ejection Fraction MOD BP 55.3 % >= 55 % LV Diastolic Volume MOD 4C 76.1 cm??? LV Systolic Volume MOD 4C 42.1 cm??? LV Ejection Fraction MOD 4C 44.7 % LV Diastolic Length 4C 8.3 cm LV Systolic Length 4C 7.2 cm LV Diastolic Volume MOD 2C 107.3 cm??? LV Systolic Volume MOD 2C 39.9 cm??? LV Ejection Fraction MOD 2C 62.8 % LV Diastolic Length 2C 8.8 cm LV Systolic Length 2C 7.4 cm Ascending Aorta Diameter 2.5 cm M-MODE Aortic Root Diameter MM 2.9 cm LA Systolic Diameter MM 3.2 cm LA Ao Ratio MM 1.1 MV E Point Septal Separation 0.8 cm AV Cusp Separation MM 1.2 cm DOPPLER AV Peak Velocity 137.0 cm/s AV Peak Gradient 7.5 mmHg MR Peak Velocity 102.5 cm/s MR Peak Gradient 4.2 mmHg MV E' Velocity 6.2 cm/s TR Peak Velocity 95.6 cm/s TR Peak Gradient 3.7 mmHg Right Ventricular Systolic Press 8.7 mmHg PV Peak Velocity 106.0 cm/s PV Peak Gradient 4.5 mmHg FINDINGS Left Ventricle Left ventricular ejection fraction is estimated at 55-60 %. Moderate concentric left ventricular hypertrophy. Right Ventricle Normal right ventricular size and function. Right Atrium Normal right atrial size. Left Atrium Normal left atrial size. Mitral Valve Mitral valve thickened. Minimal mitral stenosis. Trace to mild mitral regurgitation. Aortic Valve Trileaflet aortic valve. Diffuse thickening (sclerosis) of the aortic valve cusps without reduced excursion. Tricuspid Valve Trace to mild tricuspid regurgitation.structurally normal tricuspid valve. Pulmonic Valve Pulmonic valve not well visualized. Pericardium Normal pericardium. Echo free space anterior to the right ventricle likely represents a fat pad. Aorta Normal size aortic root and proximal ascending aorta. CONCLUSIONS 1. Normal left ventricle size and systolic function 2. Trace to mild mitral and tricuspid regurgitation Previewed by: Dr. Jocelyn Kemp MD (Electronically Signed) Final Date: 22 July 2022 14:11
== END 2022-07-19 18:32 | disposition home or self-care (01) ==
LOC: EC 11:03 → 6NMEDSUR 14:15
PROVIDERS: ADMIT Hospitalist; ATTEND Hospitalist
DX: G45.9 Transient cerebral ischemic attack, unspecified (principal); I16.1 Hypertensive emergency; I10 Essential (primary) hypertension; R90.82 White matter disease, unspecified; Z82.49 Family history of ischemic heart disease and other diseases of the circulatory system
CPT/HCPCS: 96372; 99285; 36415; 94760; 93005; 93306; 97161; 82747; 80061; 80053; 80048; 84443; 82607; 82550; 84484; 85025; 85610; 85730; 71046; 70496; 70450; 70498; 70553; 72156; G0378 ×2; J0360; A9585; Q9967; J1644